=== PATIENT | female | born 1960 | race Caucasian/White ===

== ENCOUNTER → 2023-07-29 06:28 | Day surgery (SDC) | payer OTHER, SELFPAY | LOC: GI 06:28 | PROVIDERS: ATTENDING PHYSICIAN Internal Medicine | DX: K44.9 Diaphragmatic hernia without obstruction or gangrene (principal); K31.89 Other diseases of stomach and duodenum; D51.0 Vitamin B12 deficiency anemia due to intrinsic factor deficiency; R12 Heartburn | CPT/HCPCS: 43239; 88305; 88342 ==

== ENCOUNTER → 2024-01-03 11:07 | Outpatient (REF) | payer OTHER, SELFPAY | LOC: HWWDC 11:07 | PROVIDERS: ATTENDING PHYSICIAN Nurse Practitioner Family; FAMILY PHYSICIAN Emergency Medicine | DX: Z12.31 Encounter for screening mammogram for malignant neoplasm of breast (principal) | CPT/HCPCS: 77063; 77067 ==

== ENCOUNTER → 2024-05-24 10:25 | Outpatient (REF) | payer OTHER, SELFPAY | LOC: HWRAD 10:25 | PROVIDERS: ATTENDING PHYSICIAN Obstetrics & Gynecology; FAMILY PHYSICIAN Emergency Medicine | DX: N95.0 Postmenopausal bleeding (principal) | CPT/HCPCS: 76830; 76856 ==

== ENCOUNTER → 2024-06-05 11:01 | Outpatient (REF) | payer OTHER, SELFPAY ==
[2024-06-05 11:54] LABS: % Basophils 0.6 % (0-2); % Eosinophils 2.8 % (0-6); % Immature Granulocytes 0.2 % (0-0.5); % Lymphocytes 46.8 % (20.5-51.1); % Monocytes 6.6 % (1.7-9.3); Absolute Eosinophils 0.1 10^3/uL (0-0.7); Absolute Lymphocytes 2.2 10^3/uL (1.2-3.4); Absolute Monocytes 0.3 10^3/uL (0.1-0.6); Hematocrit 38.3 % (37.0-47.0); Hemoglobin 12.8 g/dL (12.0-16.0); Mean Corp Hgb Conc. 33.4 g/dL (33.0-37.0); Mean Corpuscular Hgb 29.8 pg (27.0-31.0); Mean Corpuscular Volume 89.3 fL (81.0-99.0); Mean Platelet Volume 10.2 fL (7.4-10.4); Nucleated Red Blood Cells % 0 %; Platelet Count 278 10^3/uL (130-400); Red Blood Cell Count 4.29 10^6/uL (4.20-5.40); Red Cell Dist. Width 13.5 % (11.5-14.5); White Blood Cell Count 4.7 10^3/uL (4.8-10.8)
[2024-06-05 12:16] LABS: Blood Urea Nitrogen 6 mg/dl (7-17); Calcium 9.6 mg/dl (8.4-10.2); Carbon Dioxide 27 mmol/L (22-30); Chloride 103 mmol/L (98-107); Glucose 112 mg/dl (70-99); Potassium 4.1 mmol/L (3.5-5.1); Sodium 138 mmol/L (135-145); eGFR > 60.00
[2024-06-06 11:52] LABS: Thyroglobulin Antibodies <1.5 IU/mL (0.0-4.0); Thyroid Peroxidase Ab (TPO) <0.3 IU/mL (0.0-9.0)
[2024-06-06 17:06] LABS: EBV-EA (D) Ab IgG <5.0 U/mL (0.0-10.9); EBV-VCA IgM Antibodies <10.0 U/mL (0.0-43.9)
[2024-06-07 12:19] LABS: Lyme Antibody Screen, EIA Negative (Negative)
== END ==
LOC: RCS 11:01
PROVIDERS: ATTENDING PHYSICIAN Specialist; FAMILY PHYSICIAN Emergency Medicine; REFERRING PHYSICIAN Nurse Practitioner Family
DX: Z01.818 Encounter for other preprocedural examination (principal); R53.83 Other fatigue
CPT/HCPCS: 36415; 80048; 85025; 86376; 86618; 86663; 86664; 86665; 86800; 93005

== ENCOUNTER 2024-06-23 11:55 | Emergency (ER) | payer OTHER, SELFPAY ==
[2024-06-23 11:57] VITALS: BP 142/92
[2024-06-23 12:43] LABS: % Basophils 0.6 % (0-2); % Immature Granulocytes 0.3 % (0-0.5); % Lymphocytes 40.7 % (20.5-51.1); % Monocytes 7.1 % (1.7-9.3); % Neutrophils 49.3 % (42.2-75.2); Absolute Eosinophils 0.1 10^3/uL (0-0.7); Absolute Lymphocytes 2.6 10^3/uL (1.2-3.4); Absolute Monocytes 0.5 10^3/uL (0.1-0.6); Absolute Neutrophils 3.2 10^3/uL (1.4-6.5); Hemoglobin 12.5 g/dL (12.0-16.0); Mean Corp Hgb Conc. 34.7 g/dL (33.0-37.0); Mean Corpuscular Hgb 30.2 pg (27.0-31.0); Mean Platelet Volume 10.2 fL (7.4-10.4); Nucleated Red Blood Cells % 0 %; Platelet Count 291 10^3/uL (130-400); Red Blood Cell Count 4.14 10^6/uL (4.20-5.40); Red Cell Dist. Width 13.2 % (11.5-14.5); White Blood Cell Count 6.5 10^3/uL (4.8-10.8)
[2024-06-23 13:00] LABS: ALT (SGPT) 27 U/L (0-35); AST (SGOT) 26 U/L (14-36); Albumin 4.3 g/dl (3.5-5.0); Alkaline Phosphatase 61 U/L (38-126); Blood Urea Nitrogen 6 mg/dl (7-17); Calcium 9.5 mg/dl (8.4-10.2); Carbon Dioxide 24 mmol/L (22-30); Chloride 106 mmol/L (98-107); Glucose 108 mg/dl (70-99); Lipase 145 U/L (23-300); Potassium 4.3 mmol/L (3.5-5.1); Sodium 137 mmol/L (135-145); Total Bilirubin 0.6 mg/dl (0.2-1.3); Total Protein 6.6 g/dl (6.3-8.2); eGFR > 60.00
[2024-06-23 15:09] VITALS: BMI 27.5
[2024-06-23 15:37] LABS: Urine Albumin Negative (Neg - Trace); Urine Bilirubin Negative (Negative); Urine Character Clear (Clear); Urine Color Yellow; Urine Glucose Negative (Negative); Urine Ketone Negative (Negative); Urine Leukocyte Negative (Negative); Urine Nitrite Negative (Negative); Urine Occult Blood Negative (Negative); Urine Urobilinogen Negative (Neg - 1+)
[2024-06-23 16:30] VITALS: BP 136/82
--- NOTE | 2024-06-23 17:09 | ED.GENMED ---
History of Present Illness
General
Chief Complaint: Abdominal Pain
Time Seen by Provider: 06/23/24 14:46
History of Present Illness
History of Present Illness:
63-year-old female presents for evaluation of lower abdominal pains ongoing for the past week. Seems to vary between the right and left lower quadrant. No fevers or chills. Does note the bowel movements seem to be smaller in caliber more
frequent. No dysuria or hematuria. Prior abdominal surgery includes cholecystectomy and left ovarian cystectomy
Past History
Past History
ED Past Medical History: Hypercholesterolemia and Other (Meningioma, chronic headaches, migraines); Negative CAD, HTN, IDDM or NIDDM
ED Past Surgical History: Other (Neuro)
Social History
Tobacco: Non-smoker
Alcohol: None
Drug: None
Personal: Single
Family History
Family History: Negative Early CAD or CAD
Review of Systems
Review of Systems
Allergies reviewed?: Yes
All Other Systems: ROS reviewed and negative except as documented in HPI and ROS
Phy Exam
Physical Exam
Physical Exam:
GEN: Well appearing, NAD, WDWN
HEENT: Oral mucosa moist, no scleral icterus
Cardiac: Regular rate
Lung: No respiratory distress, no tachypnea
Abdomen: Soft, minimal suprapubic and right lower quadrant tenderness, no rigidity
MSK: No gross deformity or injuries
Skin: Good color, no pallor or jaundice, no rashes
Neuro: AO x3, moves all extremities freely
Psych: Calm, cooperative
Course
Orders/Labs/Results
Orders:
Orders
06/23/24 12:26
Complete Blood Count/With Diff Urgent
Comprehensive Metabolic Panel Urgent
Lipase Urgent
06/23/24 15:00
CT Abd/Pel (IV only)-DH only Urgent
Comment:
Reason For Exam: LLQ pain
06/23/24 15:19
Urinalysis Reflex To Culture Urgent
Date Specimen was Collected: 06/23/24
Time Specimen was Collected: 15:18
Abnormal Lab Results
06/23/24
12:26
RBC 4.14 L 10^6/uL
(4.20-5.40)
Hct 36.0 L %
(37.0-47.0)
BUN 6 L mg/dl
(7-17)
Glucose 108 H mg/dl
(70-99)
06/23/24 12:26
06/23/24 12:26
Vital Signs
Initial and Last Documented VS:
Initial Vital Signs
Temp Pulse Resp BP Pulse Ox
98.2 F 106 20 142/92 99
06/23/24 11:57 06/23/24 11:57 06/23/24 11:57 06/23/24 11:57 06/23/24 11:57
Last Documented Vital Signs
Temp Pulse Resp BP Pulse Ox
98.2 F 92 18 136/82 99
06/23/24 11:57 06/23/24 16:30 06/23/24 16:30 06/23/24 16:30 06/23/24 16:30
MDM/Problems Addressed
MDM/Problems Addressed:
Patient's workup is reassuring, no CT evidence for acute pathology.
*Critical Care Note
Total Time (30-74mins, 75-104mins- exclusive of procedures): Not Applicable
ED Attending Note
-
Portions of this chart may have been created with voice recognition software.� Occasional wrong word or��sound alike� substitutions may have occurred due to the inherent limitations of voice recognition software.
Discharge Plan
Departure
Patient Disposition: Home (Routine Discharge)
Date of Disposition: 06/23/24
Time of Disposition: 17:10
Patient with high blood pressure during this ER visit?: No
Discharge Problem:
Bilateral lower abdominal pain
Instructions: Abdominal Pain
Prescriptions:
No Action
lansoprazole [Prevacid] 30 MG capsule,delayed release(DR/EC)
30 mg PO HS Qty: 30 0RF
Referrals:
Arleth Curry MD [Family Provider] -
Interventions
Interventions:
*Risk Screen - Suicide Last Done: 06/23/24 15:11
*General Assessment Last Done: 06/23/24 11:57
*Neglect/Abuse Screening Last Done: 06/23/24 17:23
*ED- Fall Risk Assessment Last Done: 06/23/24 17:23
*ED COVID-19 Vaccine History Last Done: 06/23/24 17:23
*Nursing Disposition Last Done: 06/23/24 17:23
KX-Haayrm-Wudbmcymqy Assessment Last Done: 06/23/24 16:46
Discharge Date and Time
Print Language: PORTUGUESE
== END 2024-06-23 17:23 | disposition home or self-care (01) ==
LOC: EMR 11:55
PROVIDERS: Emergency Medicine; Physician Assistant; EMERGENCY PHYSICIAN Emergency Medicine; FAMILY PHYSICIAN Emergency Medicine
DX: R10.31 Right lower quadrant pain (principal); E78.00 Pure hypercholesterolemia, unspecified
CPT/HCPCS: 99284; 74177; 80053; 81003; 83690; 85025; Q9967

== ENCOUNTER 2024-07-19 03:02 | Emergency (ER) | payer OTHER, SELFPAY ==
[2024-07-19 03:09] VITALS: BP 147/93
--- NOTE | 2024-07-19 03:26 | ED.GENMED ---
History of Present Illness
General
Chief Complaint: DVT/Possible Blood Clot
Source: patient and spouse
Exam Limitations: none
Time Seen by Provider: 07/19/24 03:16
Nursing documentation reviewed up to this point in time: agreed with
History of Present Illness
History of Present Illness:
This is a 63-year-old woman who underwent right total hip replacement July 10, performed by Dr. Perez. Postoperatively she was prescribed Celebrex as well as a 3-day course of Decadron and aspirin 325 mg daily for DVT prevention. She stopped all
of these medications within 2 to 3 days postoperatively due to epigastric discomfort. She has a history of GERD, maintained on omeprazole daily. She states epigastric discomfort promptly resolved with discontinuation of Decadron, aspirin and
Celebrex. She has been taking Tylenol as well as occasional doses of oxycodone for hip pain.
She has been participating in outpatient physical therapy 3 times weekly and doing well with this but this evening she noticed swelling and pain about her right knee and tonight was concerned with right posterior knee dark purple ecchymosis. She
denies calf pain, no weakness nor numbness. She has had no chest pain or coughing or shortness of breath. She has not had a fever nor chills.
No abdominal pain no back pain. Moving her bowels well. She denies dysuria urgency or hematuria
Past History
Past History
ED Past Medical History: GERD (Hiatal hernia), Hypercholesterolemia and Other (Meningioma, chronic headaches, migraines); Negative CAD, HTN, IDDM or NIDDM
ED Past Surgical History: Cholecystectomy, Gynecological (Oophorectomy), Orthopedic (Right total hip replacement July 10, 2024) and Other (Neuro)
Social History
Tobacco: Non-smoker
Alcohol: None
Drug: None
Personal:
Living: with family
Employment: Retired
Family History
Family History: Negative Early CAD or CAD
Phy Exam
Physical Exam
Physical Exam:
GENERAL: 63-year-old woman appears her stated age, awake and alert, pleasant, appears in no acute distress. Ambulatory with rolling walker, gait is slow but steady.
EYE: anicteric
NECK: Supple, nontender, no meningismus, no significant adenopathy.
ENT: oral mucosa is moist. No rhinorrhea.
CARDIAC: Regular rate and rhythm. no murmur.
LUNGS: Clear breath sounds bilaterally, no acute respiratory distress, no wheezes/rales/rhonchi
ABDOMEN: Soft, nondistended, without focal tenderness, no r/g, no cvat. normoactive BS.
NEUROLOGICAL: Alert and oriented x3, no focal neuro deficits.
SKIN: Warm and dry, normal color, skin intact. No rash.
MUSCULOSKELETAL: Right lateral hip dressing is dry and intact. There is mild dark purple ecchymosis right posterior popliteal region that extends to the distal posterior thigh. There is mild soft tissue swelling anterior superior knee with mild
tenderness to palpation anterior to superior right knee. There is full range of motion of hip and knee. No erythema, no palpable heat. No crepitus. There is no tenderness to the calf. No palpable cords. Peripheral pulses are full and equal
b/l.
PSYCH: Normal and appropriate interaction.
Course
Orders/Labs/Results
Orders:
Orders
07/19/24 03:25
US Periph Venous LOWER Ext RT Urgent
Comment:
Reason For Exam: pain, swelling RLE-hip replacement 07/10/24
Vital Signs
Initial and Last Documented VS:
Initial Vital Signs
Temp Pulse Resp BP Pulse Ox
99.7 F 105 18 147/93 100
07/19/24 03:09 07/19/24 03:09 07/19/24 03:09 07/19/24 03:09 07/19/24 03:09
Last Documented Vital Signs
Temp Pulse Resp BP Pulse Ox
99.7 F 105 18 117/69 97
07/19/24 03:09 07/19/24 03:09 07/19/24 03:09 07/19/24 04:29 07/19/24 04:30
MDM/Problems Addressed
Differential Diagnosis Includes:
Dark purple ecchymosis posterior popliteal region I suspect is related to focal blood loss from right total hip replacement, dependent ecchymosis tracking down along the fascial planes.
As patient discontinued aspirin last week there is some concern for DVT thus we will check ultrasound right lower extremity.
Chronic conditions affecting care: Other (Recent right total hip replacement July 10)
*Radiology
Radiology exam reviewed: other (Preliminary verbal report from metallurgical technician, venous Doppler negative for DVT.)
*Pulse Oximetry
Patient hypoxic: no
*Critical Care Note
Total Time (30-74mins, 75-104mins- exclusive of procedures): Not Applicable
Update Note
Update Note:
04:30
US (-) for DVT
pt requesting bandage to be removed. it was due to be removed yesterday.
Bandage removed by myself revealing dry and intact right lateral hip incision with intact barrington. no erythema, no drainage. Dressed with a primapore dressing
pt has fu with ortho next week.
ED Attending Note
-
Portions of this chart may have been created with voice recognition software.� Occasional wrong word or��sound alike� substitutions may have occurred due to the inherent limitations of voice recognition software.
Discharge Plan
Departure
Patient Disposition: Home (Routine Discharge)
Date of Disposition: 07/19/24
Time of Disposition: 04:32
Patient with high blood pressure during this ER visit?: No
Discharge Problem:
postoperative, dependent ecchymosis RLE
Instructions: Hip replacement
Prescriptions:
No Action
lansoprazole [Prevacid] 30 MG capsule,delayed release(DR/EC)
30 mg PO HS Qty: 30 0RF
Referrals:
Tony Perez MD [Active] - Keep scheduled appt
UNKNOWN - PT DOES,NOT KNOW [Family Provider] -
Interventions
Interventions:
*Risk Screen - Suicide Last Done: 07/19/24 03:09
*General Assessment Last Done: 07/19/24 03:41
*Neglect/Abuse Screening Last Done: 07/19/24 03:41
*ED- Fall Risk Assessment Last Done: 07/19/24 03:41
*ED COVID-19 Vaccine History Last Done: 07/19/24 03:41
*Nursing Disposition Last Done: 07/19/24 04:58
ED- Cardiac Assessment Last Done: 07/19/24 03:41
ED- Pulmonary Assessment Last Done: 07/19/24 03:41
ED-Peripheral Vascular Assessment Last Done: 07/19/24 03:41
ED-Skin Assessment Last Done: 07/19/24 03:41
Discharge Date and Time
Discharge Date/Time: 07/19/24 05:01
Print Language: THAI
[2024-07-19 03:40] VITALS: BP 140/87
[2024-07-19 03:41] VITALS: BMI 27.2
[2024-07-19 04:00] VITALS: BP 119/62
[2024-07-19 04:29] VITALS: BP 117/69
== END 2024-07-19 05:01 | disposition home or self-care (01) ==
LOC: EMR 03:02
PROVIDERS: EMERGENCY PHYSICIAN Emergency Medicine
DX: L76.32 Postprocedural hematoma of skin and subcutaneous tissue following other procedure (principal); K21.9 Gastro-esophageal reflux disease without esophagitis; K44.9 Diaphragmatic hernia without obstruction or gangrene; E78.00 Pure hypercholesterolemia, unspecified; E11.9 Type 2 diabetes mellitus without complications; Z90.49 Acquired absence of other specified parts of digestive tract; Z90.721 Acquired absence of ovaries, unilateral; Z96.641 Presence of right artificial hip joint
CPT/HCPCS: 99284; 93971

== ENCOUNTER 2024-09-20 06:37 | Day surgery (SDC) | payer OTHER, SELFPAY | END 2024-09-20 15:50 | disposition home or self-care (01) | LOC: GI 06:37 | PROVIDERS: ATTENDING PHYSICIAN Internal Medicine | DX: Z12.11 Encounter for screening for malignant neoplasm of colon (principal); R10.9 Unspecified abdominal pain; Q43.8 Other specified congenital malformations of intestine; D12.0 Benign neoplasm of cecum; K63.5 Polyp of colon; Z80.0 Family history of malignant neoplasm of digestive organs | CPT/HCPCS: 45385; 45380; 88305 ==

== ENCOUNTER 2024-12-04 10:11 | Outpatient (RCR) | payer OTHER, SELFPAY | END 2024-12-04 23:59 | disposition home or self-care (01) | LOC: RPT 10:11 | PROVIDERS: ATTENDING PHYSICIAN Specialist; FAMILY PHYSICIAN Emergency Medicine | DX: Z47.1 Aftercare following joint replacement surgery (principal); M54.16 Radiculopathy, lumbar region; R26.2 Difficulty in walking, not elsewhere classified; R26.89 Other abnormalities of gait and mobility; M62.81 Muscle weakness (generalized); Z96.641 Presence of right artificial hip joint; Z73.6 Limitation of activities due to disability | CPT/HCPCS: 97110; 97112; 97140; 97162 ==

== ENCOUNTER 2025-01-08 11:14 | Outpatient (RCR) | payer OTHER, SELFPAY | END 2025-01-08 23:59 | disposition home or self-care (01) | LOC: RPT 11:14 | PROVIDERS: ATTENDING PHYSICIAN Specialist; FAMILY PHYSICIAN Emergency Medicine | DX: M54.16 Radiculopathy, lumbar region (principal); Z47.1 Aftercare following joint replacement surgery; Z73.6 Limitation of activities due to disability; R26.2 Difficulty in walking, not elsewhere classified; R26.89 Other abnormalities of gait and mobility; M62.81 Muscle weakness (generalized); Z96.641 Presence of right artificial hip joint | CPT/HCPCS: 97010; 97110; 97112; 97140 ==

== ENCOUNTER 2025-01-30 07:39 | Outpatient (RCR) | payer OTHER, SELFPAY | END 2025-01-30 23:59 | disposition home or self-care (01) | LOC: RPT 07:39 | PROVIDERS: ATTENDING PHYSICIAN Specialist; FAMILY PHYSICIAN Emergency Medicine | DX: Z47.1 Aftercare following joint replacement surgery (principal); M54.16 Radiculopathy, lumbar region; Z73.6 Limitation of activities due to disability; R26.2 Difficulty in walking, not elsewhere classified; R26.89 Other abnormalities of gait and mobility; M62.81 Muscle weakness (generalized); Z96.641 Presence of right artificial hip joint | CPT/HCPCS: 97110; 97112; 97140 ==

== ENCOUNTER 2025-02-13 12:13 | Outpatient (RCR) | payer OTHER, SELFPAY | END 2025-02-13 23:59 | disposition home or self-care (01) | LOC: RPT 12:13 | PROVIDERS: ATTENDING PHYSICIAN Specialist; FAMILY PHYSICIAN Emergency Medicine | DX: Z47.1 Aftercare following joint replacement surgery (principal); M54.16 Radiculopathy, lumbar region; Z73.6 Limitation of activities due to disability; R26.2 Difficulty in walking, not elsewhere classified; R26.89 Other abnormalities of gait and mobility; M62.81 Muscle weakness (generalized); Z96.641 Presence of right artificial hip joint | CPT/HCPCS: 97110; 97140 ==

== ENCOUNTER → 2025-03-29 10:49 | Outpatient (REF) | payer OTHER, SELFPAY | LOC: HWRAD 10:49 | PROVIDERS: ATTENDING PHYSICIAN Obstetrics & Gynecology; REFERRING PHYSICIAN Emergency Medicine | DX: M81.0 Age-related osteoporosis without current pathological fracture (principal); Z12.31 Encounter for screening mammogram for malignant neoplasm of breast | CPT/HCPCS: 77063; 77067; 77080 ==